=== PATIENT | female | born 1970 | race Caucasian/White ===

== ENCOUNTER 2017-09-29 13:30 | Emergency (ER) | payer OTHER ==
--- NOTE | 2017-09-29 13:34 | EDM.PDOC ---
ED HPI GENERAL MEDICAL PROBLEM - General Chief Complaint: Allergic Reaction Time Seen by Provider: 09/29/17 13:34 Source of Information: Reports: Patient History Limitations: Reports: No Limitations - History of Present Illness Onset: Today, Sudden Duration: Minutes: (40) Location: Reports: Face, Other (Tongue) Quality: Reports: Pressure Severity: Moderate Improves with: Reports: None Worsens with: Reports: None Context: Reports: Other Associated Symptoms: Reports: No Other Symptoms Treatments [employer]: Reports: Other (see below) (EpiPen and oral Benadryl) - Related Data Allergies Allergy/AdvReac Type Severity Reaction Status Date / Time ceftriaxone sodium Allergy Rash Verified 09/10/14 23:59 [From Rocephin] Home Meds: Home Meds Levothyroxine [Synthroid] 25 mcg PO ASDIRECTED 03/20/13 [History] Desoximetasone [Topicort 0.25% Crm] 1 applic TOP ASDIRECTED 07/31/13 [History] LORazepam 0.5 tab PO BID PRN 07/31/13 [History] Lactobacillus Acidophilus [Probiotic] 1 each PO BID 07/31/13 [History] EPINEPHrine [Epipen 2-Jeevan] 0.3 mg IJ ONETIME PRN #1 pack 09/11/14 [Rx] Lactobacillus Acidophilus [Acidophilus] 1 cap PO DAILY 09/11/14 [History] Levothyroxine 25 mcg PO SUTUWETHFR 09/11/14 [History] Levothyroxine 37.5 mcg PO MOSA 09/11/14 [History] diphenhydrAMINE [Benadryl] 50 mg PO Q4HR PRN 09/11/14 [History] EPINEPHrine [Epipen 2-Jeevan] 0.3 mg IJ ASDIRECTED PRN #2 ml 09/29/17 [Rx] Past Medical History HEENT History: Reports: Impaired Vision Cardiovascular History: Reports: None Respiratory History: Reports: Other (See Below) (Allergy related distress) Gastrointestinal History: Reports: Cholelithiasis Genitourinary History: Reports: None [employer] History: Reports: Polycystic Ovaries (Uncertain of number of cyst planning to see specialty services in [facility]. States although no menstrual cycle has monthly flareup of cystic discomfort.) : 5 Para: 5 LMP (Approximate): Menopausal (Uncertain of last menses) Musculoskeletal History: Reports: None Neurological History: Reports: None Psychiatric History: Reports: None Endocrine/Metabolic History: Reports: Hypothyroidism Hematologic History: Reports: None Immunologic History: Reports: None Oncologic (Cancer) History: Reports: None Dermatologic History: Reports: Urticaria - Infectious Disease History Infectious Disease History: Reports: None - Past Surgical History Cardiovascular Surgical History: Reports: None Respiratory Surgical History: Reports: None GI Surgical History: Reports: Cholecystectomy, Hernia, Abdominal Female Surgical History: Reports: D&C, Tubal Ligation Neurological Surgical History: Reports: None Musculoskeletal Surgical History: Reports: None Social & Family History - Family History Family Medical History: Noncontributory - Tobacco Use Smoking Status *Q: Never Smoker - Living Situation & Occupation Living situation: Reports: with Family, , with Spouse Occupation: Employed ED ROS GENERAL - Review of Systems Review Of Systems: See Below Constitutional: Reports: Chills HEENT: Reports: Throat Swelling (Mild), Other (Tongue swelling) Respiratory: Reports: Wheezing (Resolved by time of arrival after self administration EpiPen). Denies: Shortness of Breath Cardiovascular: Reports: No Symptoms Endocrine: Reports: No Symptoms GI/Abdominal: Reports: Abdominal Pain (Typical for her cystic diagnosis) : Reports: No Symptoms Musculoskeletal: Reports: No Symptoms Skin: Reports: Rash, Urticaria Neurological: Reports: No Symptoms Psychiatric: Reports: No Symptoms Hematologic/Lymphatic: Reports: No Symptoms Immunologic: Reports: Food Allergy (Unknown stating pops up with no correlation to food intake variety) Free Text/Narrative/Comment: Acid multiple events typically controlled with Benadryl occasionally requiring EpiPen. This event did not improve with the aforementioned treatment and was approximately 30-40 minutes into the reaction when she arrived ambulatory in no respiratory distress ED EXAM, GENERAL - Physical Exam Exam: See Below Free Text/Narrative:: Able to converse freely with a thickened tongue feeling but no distress. There is no respiratory distress, no cyanosis, no pallor, extremities are cool to touch heart rate is in the 90s. She is able to control her saliva is not drooling nor gagging. She speaks of incidental abdominal discomfort associated to hers ovarian cyst. General Appearance: Alert, WD/WN, No Apparent Distress Eye Exam: Bilateral Eye: PERRL Ears: Normal External Exam, Normal Canal Nose: Normal Inspection, Normal Mucosa, No Blood Throat/Mouth: Normal Inspection, Normal Lips, Normal Teeth, Normal Oropharynx, No Airway Compromise Head: Atraumatic, Normocephalic Neck: Normal Inspection, Supple, Non-Tender, Full Range of Motion. No: Lymphadenopathy (L), Lymphadenopathy (R) Respiratory/Chest: No Respiratory Distress, Lungs Clear, Normal Breath Sounds, No Accessory Muscle Use, Chest Non-Tender Cardiovascular: Normal Peripheral Pulses, Regular Rate, Rhythm, No Edema, No Murmur Peripheral Pulses: 1+: Dorsalis Pedis (L), Dorsalis Pedis (R), 2+: Carotid (L), Carotid (R), Radial (L), Radial (R) GI/Abdominal: Normal Bowel Sounds, No Organomegaly, No Distention, Tender (Female) Exam: Deferred Rectal (Female) Exam: Deferred Back Exam: Normal Inspection Extremities: Normal Inspection (Other than extreme cool to touch vasoconstriction), Normal Range of Motion, Non-Tender, Normal Capillary Refill, No Pedal Edema Neurological: Alert, Oriented, CN II-XII Intact, Normal Cognition Psychiatric: Normal Affect, Normal Mood Skin Exam: Dry, Intact, Cool. No: Cyanosis, Diaphoretic Lymphatic: No Adenopathy Course - Vital Signs Last Recorded V/S: Last Vital Signs Temp 37.4 C 09/29/17 13:30 Pulse 91 09/29/17 13:30 Resp 18 09/29/17 13:30 BP 128/89 09/29/17 13:30 Pulse Ox - Orders/Labs/Meds Orders: Active Orders 24 hr Category Date Time Status Peripheral IV Care [RC] . DIRECTED Care 09/29/17 13:39 Ordered Sodium Chloride 0.9% [Syrex Flush] Med 09/29/17 13:39 Active 5 ml FLUSH Q8HR PRN Peripheral IV Insertion Adult [OM.PC] Routine Oth 09/29/17 13:39 Ordered Medication Orders Sodium Chloride (Syrex Flush) 5 ml FLUSH Q8HR PRN PRN Reason: Keep Vein Open Last Admin: 09/29/17 14:07 Dose: 5 ml Meds: Medications Generic Name Dose Route Start Last Admin Trade Name Freq PRN Reason Stop Dose Admin Sodium Chloride 5 ml 09/29/17 13:39 09/29/17 14:07 Syrex Flush FLUSH 5 ml Q8HR PRN Administration Keep Vein Open Discontinued Medications Generic Name Dose Route Start Last Admin Trade Name Lorri PRN Reason Stop Dose Admin Diphenhydramine HCl 50 mg 09/29/17 13:39 09/29/17 13:50 Benadryl IVPUSH 09/29/17 13:40 50 mg ONETIME ONE Administration Ketorolac Tromethamine 30 mg 09/29/17 14:08 Toradol IVPUSH 09/29/17 14:09 ONETIME ONE Methylprednisolone Sodium Succinate 125 mg 09/29/17 13:40 09/29/17 13:45 Solu-Medrol IVPUSH 09/29/17 13:41 125 mg ONETIME ONE Administration Departure - Departure Time of Disposition: 14:17 Disposition: Home, Self-Care 01 Condition: Good Clinical Impression: Anaphylactic reaction, Allergic reaction, Lower abdominal pain, Dermatitis - Discharge Information *PRESCRIPTION DRUG MONITORING PROGRAM REVIEWED*: Not Applicable *COPY OF PRESCRIPTION DRUG MONITORING REPORT IN PATIENT JOY: Not Applicable Instructions: Allergies, Adult, [id number] Referrals: Jil Saavedra PA-C [Primary Care Provider] - Forms: ED Department Discharge, ED Summary Discharge Additional Instructions: Home rest. Continue your medications as prescribed. Follow-up with your [employer]PER[employer] as scheduled for your ovarian cyst. Consider allergy testing and make sure you have your epinephrine pen and Benadryl with you at all times Call or return if symptoms recur or worsen. - Problem List & Annotations (1) Allergic reaction SNOMED Code(s): 397503779 Code(s): T78.40XA - ALLERGY, UNSPECIFIED, INITIAL ENCOUNTER Status: Chronic Priority: High Current Visit: Yes Qualifiers: Encounter type: initial encounter Qualified Code(s): T78.40XA - Allergy, unspecified, initial encounter (2) Anaphylactic reaction SNOMED Code(s): 87133857 Code(s): T78.2XXA - ANAPHYLACTIC SHOCK, UNSPECIFIED, INITIAL ENCOUNTER Status: Acute Priority: High Current Visit: Yes Qualifiers: Encounter type: initial encounter Qualified Code(s): T78.2XXA - Anaphylactic shock, unspecified, initial encounter (3) Lower abdominal pain SNOMED Code(s): 93619559 Code(s): R10.30 - LOWER ABDOMINAL PAIN, UNSPECIFIED Status: Chronic Priority: Medium Current Visit: Yes Onset Date: Unknown - Problem List Review Problem List Initiated/Reviewed/Updated: Yes - My Orders Last 24 Hours: My Active Orders 09/29/17 13:39 Peripheral IV Care [RC] . DIRECTED Sodium Chloride 0.9% [Syrex Flush] 5 ml FLUSH Q8HR PRN Peripheral IV Insertion Adult [OM.PC] Routine - Assessment/Plan Last 24 Hours: My Active Orders 09/29/17 13:39 Peripheral IV Care [RC] . DIRECTED Sodium Chloride 0.9% [Syrex Flush] 5 ml FLUSH Q8HR PRN Peripheral IV Insertion Adult [OM.PC] Routine Plan: Home rest. Continue your medications as prescribed. Follow-up with your [employer]PER[employer] as scheduled for your ovarian cyst. Consider allergy testing and make sure you have your epinephrine pen and Benadryl with you at all times Call or return if symptoms recur or worsen.
[2017-09-29] MEDS: methylPREDNISolone Sodium Succinate 125 MG/2 ML SDV IVPUSH ONE (13:45)
[2017-09-29] MEDS: diphenhydrAMINE 50 MG/ML SDV IVPUSH ONE (13:50)
[2017-09-29] MEDS: Sodium Chloride 0.9% 5 ML Syringe FLUSH PRN (14:07)
[2017-09-29] MEDS: Ketorolac 30 MG/ML SDV IVPUSH ONE (14:15)
[2017-09-29 14:17] VITALS: BP 128/89
== END 2017-09-29 15:15 | disposition home or self-care (01) ==
LOC: KA.ED 13:30
DX: R22.0 Localized swelling, mass and lump, head (principal); L30.9 Dermatitis, unspecified; T78.40XA Allergy, unspecified, initial encounter; T78.2XXA Anaphylactic shock, unspecified, initial encounter; R10.30 Lower abdominal pain, unspecified; Z88.1 Allergy status to other antibiotic agents
CPT/HCPCS: 96374; 96375; 99283; J1200; J1885; J2930